=== PATIENT | male | born 1975 | race Caucasian/White ===

== ENCOUNTER 2018-09-18 17:42 | Emergency (ER) | payer OTHER ==
[2018-09-18 17:48] VITALS: BP 168/100
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
== END 2018-09-18 18:50 | disposition home or self-care (01) ==
DX: S63.642A Sprain of metacarpophalangeal joint of left thumb, initial encounter (principal); Y35.811A Legal intervention involving manhandling, law enforcement official injured, initial encounter; Y99.0 Civilian activity done for income or pay